=== PATIENT | female | born 1985 | race African-American/Black ===

== ENCOUNTER 2018-02-12 20:13 | Emergency (ER) | payer SELFPAY ==
[~2018-02-12] VITALS: Ht 167.6 cm; Wt 77.0 kg
[~2018-02-12 20:13] MED LIST: ALBU18HF2 IH
[2018-02-12] MEDS ORDERED: ALBUTEROL (0.083%) 2.5MG/3ML NEB HHN STA (21:02)
[2018-02-12] MEDS ORDERED: IPRATROPIUM BROMIDE (0.02%) 0.5MG/2.5ML NEB HHN STA (21:02)
[2018-02-12] MEDS ORDERED: PREDNISONE 20MG TABLET PO STA (21:02)
[2018-02-12 22:10] VITALS: BP 143/87
== END 2018-02-12 22:13 | disposition home or self-care (01) ==
LOC: ER 20:13
DX: J45.909 Unspecified asthma, uncomplicated (principal); R03.0 Elevated blood-pressure reading, without diagnosis of hypertension
CPT/HCPCS: 71045; 81025; 94640; 99283; J7512; J7611